=== PATIENT | male | born 1975 ===

== ENCOUNTER 2016-08-31 09:55 | Emergency (ER) | payer OTHER ==
[2016-08-31] MEDS ORDERED: Aspirin Low Dose CHEW TAB* 81 MG PO ONE (10:03)
[2016-08-31 10:24] LABS: Hematocrit 44 % (42-52); Hemoglobin 14.1 g/dl (14.0-18.0); Mean Corpuscular HGB Conc 33 g/dl (31-36); Mean Corpuscular Hemoglobin 26 pg (27-31); Mean Corpuscular Volume 80 fL (80-94); Mean Platelet Volume 8 um3 (7.4-10.4); Red Blood Count 5.41 10^6/ul (4.0-5.4); Red Cell Distribution Width 14 % (10.5-15); White Blood Count 9.3 10^3/ul (3.5-10.8)
[2016-08-31 10:39] LABS: Albumin 4.3 g/dL (3.2-5.2); BUN/Creatinine Ratio 14.5 (8-20); Calcium 9.6 mg/dL (8.6-10.3); EGFR African American 131.3 (>60); EGFR Non-African American 102.1 (>60); Globulin 3.4 g/dL (2-4); Potassium 3.9 mmol/L (3.5-5.0); Total Bilirubin 0.4 mg/dL (0.2-1.0); Total Protein 7.7 g/dL (6.4-8.9)
--- NOTE | 2016-08-31 10:50 | RAD ---
INDICATION: Chest pain COMPARISON: April 20, 2015 TECHNIQUE: An AP portable view obtained at 1040 hours is submitted. FINDINGS: Bones/Soft Tissues: There are no acute bony findings. Cardiomediastinal: The cardiomediastinal silhouette is normal. Lungs: There are no infiltrates. Pleura: There are no pleural effusions. Other: None IMPRESSION: NO ACTIVE DISEASE.
[2016-08-31] MEDS ORDERED: Cyclobenzaprine TAB* 10 MG PO ONE (11:14)
--- NOTE | 2016-08-31 11:16 | ED ---
Lia Peck Matthew, scribed for Meredith Blair MD on 08/31/16 at 1045 . HPI Chest Pain - HPI Summary HPI Summary: A 40 y/o male presents to the ED with gradually worsening, constant mid sternal chest pain since 20:00 yesterday. The pain is rated 7/10 in severity, does not radiate, and is described as throbbing/sharp. The pain is worse with movement and partially alleviates with sitting. Associated symptoms include SOB. The patient denies dizziness, weakness, numbness, tingling, fever, and diaphoresis. He's had similar symptoms in April 2015, however the pain was worse today. - History of Current Complaint Chief Complaint: EDChestPainROMI Time Seen by Provider: 08/31/16 10:02 Hx Obtained From: Patient Onset/Duration: Started Days Ago, Atraumatic, Still Present Time of Onset: 20:00 - yesterday Timing: Constant Initial Severity: Moderate Current Severity: Moderate Pain Intensity: 7 Pain Scale Used: 0-10 Numeric Chest Pain Location: Mid Sternal Chest Pain Radiates: No Character: Sharp/Stabbing Aggravating Factor(s): Movement Alleviating Factor(s): Nothing Associated Signs and Symptoms: Positive: Chest Pain, Shortness of Breath. Negative: Numbness, Tingling, Weakness, Dizziness, Fever, Diaphoresis - Allergy/Home Medications Allergies/Adverse Reactions: Allergies Allergy/AdvReac Type Severity Reaction Status Date / Time No Known Allergies Allergy Verified 08/31/16 10:06 PMH/Surg Hx/FS Hx/Imm Hx Previously Healthy: Yes Endocrine/Hematology History: Denies: Hx Diabetes Infectious Disease History: No Infectious Disease History: Denies: Traveled Outside the [place] in Last 30 Days - Family History Known Family History: Positive: Cardiac Disease - Mother - Social History Alcohol Use: Occasionally Substance Use Type: Reports: None Smoking Status (MU): Never Smoked Tobacco Review of Systems Constitutional: Negative Negative: Fever, Skin Diaphoresis Eyes: Negative ENT: Negative Positive: Chest Pain Positive: Shortness Of Breath Gastrointestinal: Negative Genitourinary: Negative Musculoskeletal: Negative Skin: Negative Neurological: Negative Negative: Weakness, Numbness Psychological: Normal All Other Systems Reviewed And Are Negative: Yes Physical Exam Triage Information Reviewed: Yes Vital Signs On Initial Exam: Initial Vitals Temp Pulse Resp BP Pulse Ox 98.2 F 59 16 131/91 100 08/31/16 10:06 08/31/16 10:06 08/31/16 10:06 08/31/16 10:06 08/31/16 10:06 Vital Signs Reviewed: Yes Appearance: Positive: Well-Appearing, No Pain Distress Skin: Positive: Warm, Skin Color Reflects Adequate Perfusion, Dry Head/Face: Positive: Normal Head/Face Inspection Eyes: Positive: EOMI, VAUGHN ENT: Positive: Normal ENT inspection Neck: Positive: Supple, Nontender Respiratory/Lung Sounds: Positive: Clear to Auscultation, Breath Sounds Present Cardiovascular: Positive: RRR Abdomen Description: Positive: Nontender, Soft. Negative: Distended, Guarding Bowel Sounds: Positive: Present Musculoskeletal: Positive: Normal, Strength/ROM Intact Neurological: Positive: Normal, Sensory/Motor Intact, Alert, Oriented to Person Place, Time, CN Intact II-III - II-XII Psychiatric: Positive: Normal, Affect/Mood Appropriate Diagnostics - Vital Signs Vital Signs Temp Pulse Resp BP Pulse Ox 08/31/16 10:06 98.2 F 59 16 131/91 100 - Laboratory Lab Results: Lab Results 08/31/16 Range/Units 10:12 WBC 9.3 (3.5-10.8) 10^3/ul RBC 5.41 H (4.0-5.4) 10^6/ul Hgb 14.1 (14.0-18.0) g/dl Hct 44 (42-52) % MCV 80 (80-94) fL MCH 26 L (27-31) pg MCHC 33 (31-36) g/dl RDW 14 (10.5-15) % Plt Count 224 (150-450) 10^3/ul MPV 8 (7.4-10.4) um3 Neut % (Auto) 64.1 (38-83) % Lymph % (Auto) 27.1 (25-47) % [place] % (Auto) 7.3 (1-9) % Eos % (Auto) 1.1 (0-6) % Baso % (Auto) 0.4 (0-2) % Absolute Neuts (auto) 6.0 (1.5-7.7) 10^3/ul Absolute Lymphs (auto) 2.5 (1.0-4.8) 10^3/ul Absolute Monos (auto) 0.7 (0-0.8) 10^3/ul Absolute Eos (auto) 0.1 (0-0.6) 10^3/ul Absolute Basos (auto) 0 (0-0.2) 10^3/ul Absolute Nucleated RBC 0 10^3/ul Nucleated RBC % 0 Result Diagrams: 08/31/16 10:12 08/31/16 10:12 Lab Statement: Any lab studies that have been ordered have been reviewed, and results considered in the medical decision making process. - Radiology CXR Xray Interpretation: No Acute Changes Radiology Interpretation Completed By: Radiologist - EKG 10:01 Cardiac Rate: Bradycardia - 55 bpm EKG Rhythm: Sinus Bradycardia EKG Interpretation: J Point EKG Comparison: No Significant Change - 04/20/15 Chest Pain Course/Dx - Course Course Of Treatment: 40 yo male with cp- leonard , bowler on left worse with moving arm but no point tenderness, no cad risks,no pe risks cp since last night. neg trop, cxr and ekg - Diagnoses Provider Diagnoses: Nonspecific chest pain Discharge - Discharge Plan Condition: Stable Disposition: HOME Prescriptions: Cyclobenzaprine TAB* [Flexeril TAB*] 10 mg PO TID PRN #20 tab PRN Reason: Spasms Patient Education Materials: Chest Pain (ED) Referrals: No Primary Care Phys,NOPCP [Primary Care Provider] - 2 Days Additional Instructions: Please follow-up with your primary care physician in two days. The documentation as recorded by the Lia donato Matthew accurately reflects the service I personally performed and the decisions made by me, Meredith Blair MD.
[2016-08-31 11:26] VITALS: BP 117/79
== END 2016-08-31 11:34 | disposition home or self-care (01) ==
LOC: ED 09:55
DX: R07.9 Chest pain, unspecified (principal); R06.02 Shortness of breath
CPT/HCPCS: 36415; 71010; 80053; 83605; 84484; 85025; 93005; 99282; A9270-GY